=== PATIENT | female | born 1980 | race Caucasian/White ===

== ENCOUNTER → 2018-02-15 | Outpatient (CLI) | payer OTHER ==
[2018-02-15 16:53] LABS: Iron Saturation 27.54 (12.00-45.00)
[2018-02-15 17:06] LABS: Parathyroid Hormone Intact 34.7 pg/mL (14.0-72.0)
[2018-02-19 11:51] LABS: Dopamine 24 Hr Urine 245 ug/day (65-400); Epinephrine 24 Hr Urine <2 ug/day (0-20); Norepinephrine 24 Hr Urine 22 ug/day (15-80); Total Catecholamines Urine 22 ug/day (15-100); Urine Creatinine,24 Hr 1.8 gm/24h (0.8-1.8)
[2018-02-19 13:42] LABS: Metanephrines 24 Hour,Urine 86 ug/day (52-341); Normetanephrine 24 Hour,Urine 173 ug/day (88-444); Total Metanephrines 24 Hour,Ur 259 ug/day (140-785)
[2018-02-20 11:52] LABS: Metanephrine, Free <25; Normetanephrine, Free 40
[2018-02-20 11:53] LABS: Total, Free (MN + NMN) 40
== END | disposition home or self-care (01) ==
LOC: LABWHC1 09:08
PROVIDERS: ATTEND Internal Medicine
DX: E04.1 Nontoxic single thyroid nodule (principal); Q61.5 Medullary cystic kidney
CPT/HCPCS: 36415; 82384; 82728; 83540; 83550; 83835; 83970

== ENCOUNTER 2020-04-27 03:36 | Observation (INO) | payer OTHER ==
[2020-04-27] MEDS ORDERED: SODIUM CHLORIDE 0.9% 500 ML 500 ML IV STA (04:04)
[2020-04-27] MEDS ORDERED: LORazepam 2 MG/ML INJ IV STA (04:05)
--- NOTE | 2020-04-27 04:06 | ED ---
Chest Pain [facility] - General Chief Complaint: Chest Pain Stated Complaint: Chest pain Time Seen by Provider: 04/27/20 03:52 Source: patient Mode of arrival: wheelchair Limitations: no limitations - History of Present Illness MD Complaint: chest pain -: hour(s) Onset: during rest Pain Location: epigastric Pain Radiation: none Severity: moderate Quality: tightness Consistency: constant Improves With: nothing Worsens With: nothing Treatments Prior to Arrival: none - Related Data Home Medications Medication Instructions Recorded Confirmed No Known Home Medications 04/27/20 04/27/20 Allergies Allergy/AdvReac Type Severity Reaction Status Date / Time No Known Allergies Allergy Verified 04/27/20 06:37 Review of Systems ROS Statement: Those systems with pertinent positive or pertinent negative responses have been documented in the HPI. ROS Other: All systems not noted in ROS Statement are negative. Constitutional: Denies: fever, chills Respiratory: Denies: cough, dyspnea, wheezes, hemoptysis Cardiovascular: Reports: chest pain. Denies: palpitations, dyspnea on exertion, orthopnea, edema, syncope Gastrointestinal: Denies: abdominal pain, nausea, vomiting, diarrhea Genitourinary: Denies: dysuria Musculoskeletal: Denies: back pain Skin: Denies: rash Neurological: Denies: headache, weakness, numbness EKG Findings - EKG Results: EKG: interpreted by GRECIA, sinus rhythm, normal axis, normal QRS, normal ST/T EKG shows: tachycardia (Rate 108 bpm) Past Medical History Past Medical History: Hypertension History of Any Multi-Drug Resistant Organisms: None Reported Past Surgical History: No Surgical Hx Reported Past Psychological History: ADD/ADHD, Anxiety Smoking Status: Former smoker Past Alcohol Use History: Occasional Past Drug Use History: Marijuana General Exam Limitations: no limitations General appearance: alert, in no apparent distress Head exam: Present: atraumatic, normocephalic Eye exam: Present: normal appearance. Absent: scleral icterus, conjunctival injection Neck exam: Present: normal inspection Respiratory exam: Present: normal lung sounds bilaterally. Absent: respiratory distress, wheezes, rales, rhonchi, stridor, chest wall tenderness Cardiovascular Exam: Present: regular rate, normal rhythm, normal heart sounds. Absent: systolic murmur, diastolic murmur, rubs, gallop GI/Abdominal exam: Present: soft. Absent: distended, tenderness, guarding, rebound, rigid, mass Extremities exam: Present: normal inspection, normal capillary refill. Absent: pedal edema, calf tenderness Back exam: Present: normal inspection. Absent: CVA tenderness (R), CVA tenderness (L) Neurological exam: Present: alert Skin exam: Present: warm, dry, intact, normal color. Absent: rash Course Vital Signs 04/27/20 04/27/20 04/27/20 03:37 03:51 04:00 Temperature 98.7 F Pulse Rate 119 H 96 Respiratory 20 16 18 Rate Blood Pressure 161/110 153/100 O2 Sat by Pulse 98 100 98 Oximetry 04/27/20 04/27/20 04/27/20 04:10 04:20 04:30 Temperature Pulse Rate 92 85 91 Respiratory 18 16 18 Rate Blood Pressure 148/120 148/120 148/120 O2 Sat by Pulse 100 97 98 Oximetry 04/27/20 04/27/20 04/27/20 04:40 04:50 05:00 Temperature Pulse Rate 90 90 96 Respiratory 16 17 Rate Blood Pressure 147/96 147/96 131/95 O2 Sat by Pulse 98 99 96 Oximetry 04/27/20 04/27/20 04/27/20 06:00 06:30 07:00 Temperature Pulse Rate 84 95 71 Respiratory 18 16 16 Rate Blood Pressure 120/82 125/86 119/85 O2 Sat by Pulse 98 96 96 Oximetry 04/27/20 07:26 Temperature Pulse Rate 86 Respiratory 18 Rate Blood Pressure 106/79 O2 Sat by Pulse 98 Oximetry Chest Pain [facility] Patient's 40-year-old woman presenting to be evaluated for epigastric chest tightness, anxiety, and hypertension. The patient states that she has not been sleeping well, approximately 5 hours going back many 3-4 days. She states she did have some subtle symptoms intermittently over the past couple of nights, but then things became severe tonight and noticed her blood pressure was quite high. She notes pain is somewhat atypical and her initial workup is negative. Discussed following up as outpatient versus admission for serial cardiac enzymes and telemetry, and patient does continue to have symptoms, though they have improved, and would prefer to stay. Disposition Clinical Impression: Chest pain Disposition: ADMITTED IP TO THIS HOSP Condition: Good
[2020-04-27 04:19] LABS: Basophils % (A) 1 %; Eosinophils # (A) 0.1 k/uL (0-0.7); Eosinophils % (A) 1 %; HCT 44.8 % (34.0-46.0); HGB 15.5 gm/dL (11.4-16.0); Lymphocytes % (A) 27 %; MCH 30.9 pg (25.0-35.0); MCHC 34.5 g/dL (31.0-37.0); MCV 89.7 fL (80.0-100.0); Mean Platelet Volume 7.3; Monocytes # (A) 0.3 k/uL (0-1.0); Monocytes % (A) 4 %; Neutrophils % (A) 66 %; Platelet Count 283 k/uL (150-450); RDW 12.7 % (11.5-15.5); WBC 7.5 k/uL (3.8-10.6)
[2020-04-27 04:34] LABS: ALT 14 U/L (4-34); AST 21 U/L (14-36); African American GFR (CKD) >90 (>60 ml/min/1.73 sqM); Albumin 5.3 g/dL (3.5-5.0); Alkaline Phosphatase 58 U/L (38-126); Anion Gap 11 mmol/L; Blood Urea Nitrogen 10 mg/dL (7-17); Calcium 10.2 mg/dL (8.4-10.2); Carbon Dioxide 23 mmol/L (22-30); Chloride 104 mmol/L (98-107); Glucose 119 mg/dL (74-99); Non-African American GFR(CKD) >90 (>60 ml/min/1.73 sqM); Potassium 3.8 mmol/L (3.5-5.1); Sodium 138 mmol/L (137-145); Total Bilirubin 0.7 mg/dL (0.2-1.3); Total Protein 8.6 g/dL (6.3-8.2)
[2020-04-27 04:37] LABS: D-Dimer 0.38 mg/L FEU (<0.60); Prothrombin Time 10.2 sec (9.0-12.0)
--- NOTE | 2020-04-27 04:38 | XR ---
EXAM: XR Chest, 2 Views CLINICAL HISTORY: ITS.REASON XR Reason: Chest Pain TECHNIQUE: Frontal and lateral views of the chest. COMPARISON: No relevant prior studies available. FINDINGS: Lungs: No consolidation or mass. Pleural space: No effusion. Heart: No cardiomegaly. Bones/joints: No acute findings. IMPRESSION: No acute cardiopulmonary process.
[2020-04-27] MEDS ORDERED: NITROGLYCERIN SL TABS 0.4 MG TAB SUBLINGUAL PRN (05:41)
[2020-04-27 07:27] VITALS: RESP 18
[2020-04-27] MEDS ORDERED: ACETAMINOPHEN TAB 325 MG TAB PO PRN (08:59)
[2020-04-27] MEDS ORDERED: FAMOTIDINE 20 MG/2 ML VIAL IV SCH (09:00)
[2020-04-27] MEDS ORDERED: METOPROLOL TARTRATE 25 MG TAB PO SCH (09:00)
[2020-04-27] MEDS ORDERED: HEPARIN SODIUM,PORCINE 5,000 UNIT/ML 1 ML VIAL SQ SCH (09:00)
--- NOTE | 2020-04-27 09:13 | P.HPIM ---
History of Present Illness This is a pleasant 40 years old female with past medical history of hypertension. Also history of anxiety. She is a patient of Dr. Quinones. She Presents because of chest pain , of unknown for 5 days, mainly in the epigastric or lower central chest, at points radius to the left shoulder and upper back but not currently. Patient could not rate the pain 1-10 stating that his only tightness and it is associated with headache about 67, her chest pain or headache are improved with sleep and she thinks they are related to her anxiety as she has 4 kids going to school and her grandmother has recently. She denies weakness numbness, no surgeries range, no diplopia or blurred vision although she says sometimes when she watches the TV she got blurred vision but not currently. She denies depression or suicidal ideation. She denies dyspnea, no nausea vomiting, no dizziness she denies smoking, occasional alcohol, no illicit drugs. As per my previous test she said her had surgery 3 years ago and she does not want to do the test. Vitas looks stable. Labs are unremarkable including CBC, INR, d-dimer, BMP, liver enzymes. Chest x-ray: No acute process. EKG showed sinus tachycardia at [address]-T changes. Review of Systems CONSTITUTIONAL: No fever, no malaise, no fatigue. HEENT: No recent visual problems or hearing problems. Denied any sore throat. CARDIOVASCULAR: No orthopnea, PND, no palpitations, no syncope. PULMONARY: No shortness of breath, no cough, no hemoptysis. GASTROINTESTINAL: No diarrhea, no nausea, no vomiting, no abdominal pain. Nor moactive bowel sounds. NEUROLOGICAL: No headaches, no weakness, no numbness. HEMATOLOGICAL: Denies any bleeding or petechiae. GENITOURINARY: Denies any burning micturition, frequency, or urgency. MUSCULOSKELETAL/RHEUMATOLOGICAL: Denies any joint pain, swelling, or any muscle pain. ENDOCRINE: Denies any polyuria or polydipsia. Past Medical History Past Medical History: Hypertension History of Any Multi-Drug Resistant Organisms: None Reported Past Surgical History: No Surgical Hx Reported Past Psychological History: ADD/ADHD, Anxiety Smoking Status: Former smoker Past Alcohol Use History: Occasional Past Drug Use History: Marijuana Medications and Allergies Home Medications Medication Instructions Recorded Confirmed Type No Known Home Medications 04/27/20 04/27/20 History Allergies Allergy/AdvReac Type Severity Reaction Status Date / Time No Known Allergies Allergy Verified 04/27/20 06:37 Physical Exam Vitals: Vital Signs Temp Pulse Resp BP Pulse Ox 04/27/20 07:00 71 16 119/85 96 04/27/20 06:30 95 16 125/86 96 04/27/20 06:00 84 18 120/82 98 04/27/20 05:00 96 17 131/95 96 04/27/20 04:50 90 147/96 99 04/27/20 04:40 90 16 147/96 98 04/27/20 04:30 91 18 148/120 98 04/27/20 04:20 85 16 148/120 97 04/27/20 04:10 92 18 148/120 100 04/27/20 04:00 96 18 153/100 98 04/27/20 03:51 16 100 04/27/20 03:37 98.7 F 119 H 20 161/110 98 Intake and Output 04/26/20 04/27/20 04/27/20 22:59 06:59 14:59 Other: Weight 58.967 kg GENERAL: The patient is alert and oriented x3, not in any acute distress. Well developed, well nourished. HEENT: Pupils are round and equally reacting to light. EOMI. No scleral icterus. No conjunctival pallor. Normocephalic, atraumatic. No pharyngeal erythema. No thyromegaly. CARDIOVASCULAR: S1 and S2 present. No murmurs, rubs, or gallops. PULMONARY: Chest is clear to auscultation, no wheezing or crackles. ABDOMEN: Soft, nontender, nondistended, normoactive bowel sounds. No palpable organomegaly. MUSCULOSKELETAL: No joint swelling or deformity. EXTREMITIES: No cyanosis, clubbing, or pedal edema. NEUROLOGICAL: Gross neurological examination did not reveal any focal deficits. SKIN: No rashes. No petechiae Results CBC & Chem 7: 04/27/20 04:12 04/27/20 04:12 Labs: Abnormal Lab Results - Last 24 Hours (Table) 04/27/20 Range/Units 04:12 Glucose 119 H (74-99) mg/dL Total Protein 8.6 H (6.3-8.2) g/dL Albumin 5.3 H (3.5-5.0) g/dL Assessment and Plan Assessment: Chest pain, rule out cardiac causes. D-dimer is negative at 0.38 Headache, most likely tension headache Anxiety Hypertension Plan: This is a pleasant 40 years old female who presents with chest pain. Serial troponin. Cardiology consult. Check echocardiogram . Also we will ask for psych consult and start the patient on BuSpar Labs and medication were reviewed.. Continue same treatment. Continue with symptomatic treatment. Resume home medication. Monitor lytes and vitals. DVT and GI prophylaxis. Further recommendations depends on the clinical course of the patient DVT prophylaxis: Subcutaneous heparin GI Prophylaxis: Pepcid Prognosis is guarded
[2020-04-27] MEDS ORDERED: busPIRone HCl 5 MG TAB PO SCH (09:15)
--- NOTE | 2020-04-27 11:13 | P.CRDCN ---
History of Present Illness History of present illness: HISTORY OF PRESENTING ILLNESS This is a pleasant 40-year-old female past medical history significant for prior hypertension however has been off of any medications recently, prior palpitatio ns and anxiety. 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 Patient states that for the last 4-5 days she has been experiencing what she describes as a chest pain however appears more epigastric in nature. She says it is sharp and stabbing sensation and comes and goes. She initially thought this may be related to her anxiety however it has been lasting over last 4-5 days which has not happened previously with her prior anxiety attacks. She admits it does come and go and is normally better when she is sleeping however when she gets up it is worse. She denies any association however with exertion. She admits to previously been on some sort of medications for high blood pressure however stopped taking these and does not check her blood pressure at home. Her initial blood pressure was elevated at 161/118. She does admit to continued epigastric discomfort. No specific association with food DIAGNOSTICS EKG reveals sinus tachycardia at 108 bpm, normal axis, no significant ST or T wave abnormalities. Chest xray no acute pulmonary process. Laboratory reviewed, hemoglobin 15.5, d-dimer 0.38, creatinine 0.69, troponin negative 2. Current cardiac medications include aspirin 325 mg daily, metoprolol 12.5 mg twice a day. REVIEW OF SYSTEMS At the time of my exam: CONSTITUTIONAL: Denies fever or chills. CARDIOVASCULAR:+chest pain, no shortness of breath, orthopnea, PND or pa lpitations. RESPIRATORY: Denies cough. GASTROINTESTINAL: +abdominal pain, no diarrhea, constipation, nausea or vomiting. MUSCULOSKELETAL: Denies myalgias. NEUROLOGIC: Denies numbness, tingling or weakness. ENDOCRINE: Denies fatigue, weight change, polydipsia or polyurina. GENITOURINARY: Denies burning, hematuria or urgency with micturation. HEMATOLOGIC: Denies history of anemia or bleeding. PHYSICAL EXAMINATION Blood pressure 106/79 heart rate 86 afebrile and maintaining oxygen saturation on room air. CONSTITUTIONAL: No apparent distress. HEENT: Head is normocephalic. Pupils are equal, round. Sclerae anicteric. Mucous membranes of the mouth are moist. No JVD. No carotid bruit. CHEST EXAMINATION: Lungs are clear to auscultation. No chest wall tenderness is noted on palpation or with deep breathing. HEART EXAMINATION: Regular rate and rhythm. S1, S2 heard. No murmurs, gallops or rub. ABDOMEN: Soft. Positive bowel sounds. + More epigastric and chest pain EXTREMITIES: 2+ peripheral pulses, no lower extremity edema and no calf tenderness. NEUROLOGIC EXAMINATION: Patient is awake, alert and oriented x3. ASSESSMENT 1. Atypical chest pain. Appears more epigastric in nature. Troponin negative 2. 2. Elevated blood pressure, may be related to anxiety and stress. Patient was placed on metoprolol. She admits she was previously on medications for high blood pressure. 3. History of anxiety 4. History of palpitations PLAN Chest pain appears atypical and may be related more to epigastric pain with possible component of GERD. Patient was placed on antacids. Acute coronary syndrome has been ruled out. We will check a exercise stress echo. Patient will likely have continued chest pain during the stress test however if no reversible ischemia, patient may be discharged from a cardiology standpoint. Past Medical History Past Medical History: Hypertension History of Any Multi-Drug Resistant Organisms: None Reported Past Surgical History: No Surgical Hx Reported Past Psychological History: ADD/ADHD, Anxiety Smoking Status: Former smoker Past Alcohol Use History: Occasional Past Drug Use History: Marijuana Medications and Allergies Home Medications Medication Instructions Recorded Confirmed Type No Known Home Medications 04/27/20 04/27/20 History Allergies Allergy/AdvReac Type Severity Reaction Status Date / Time No Known Allergies Allergy Verified 04/27/20 06:37 Physical Exam Vitals: Vital Signs Temp Pulse Resp BP Pulse Ox 04/27/20 07:26 86 18 106/79 98 04/27/20 07:00 71 16 119/85 96 04/27/20 06:30 95 16 125/86 96 04/27/20 06:00 84 18 120/82 98 04/27/20 05:00 96 17 131/95 96 04/27/20 04:50 90 147/96 99 04/27/20 04:40 90 16 147/96 98 04/27/20 04:30 91 18 148/120 98 04/27/20 04:20 85 16 148/120 97 04/27/20 04:10 92 18 148/120 100 04/27/20 04:00 96 18 153/100 98 04/27/20 03:51 16 100 04/27/20 03:37 98.7 F 119 H 20 161/110 98 Intake and Output 04/26/20 04/27/20 04/27/20 22:59 06:59 14:59 Other: Weight 58.967 kg 58.97 kg Results 04/27/20 04:12 04/27/20 04:12 Cardiac Enzymes 04/27/20 04/27/20 04/27/20 Range/Units 04:12 04:12 07:04 AST 21 (14-36) U/L Troponin I <0.012 <0.012 (0.000-0.034) ng/mL Coagulation 04/27/20 Range/Units 04:12 PT 10.2 (9.0-12.0) sec APTT 25.0 (22.0-30.0) sec CBC 04/27/20 Range/Units 04:12 WBC 7.5 (3.8-10.6) k/uL RBC 5.00 (3.80-5.40) m/uL Hgb 15.5 (11.4-16.0) gm/dL Hct 44.8 (34.0-46.0) % Plt Count 283 (150-450) k/uL Comprehensive Metabolic Panel 04/27/20 Range/Units 04:12 Sodium 138 (137-145) mmol/L Potassium 3.8 (3.5-5.1) mmol/L Chloride 104 (98-107) mmol/L Carbon Dioxide 23 (22-30) mmol/L BUN 10 (7-17) mg/dL Creatinine 0.69 (0.52-1.04) mg/dL Glucose 119 H (74-99) mg/dL Calcium 10.2 (8.4-10.2) mg/dL AST 21 (14-36) U/L ALT 14 (4-34) U/L Alkaline Phosphatase 58 (38-126) U/L Total Protein 8.6 H (6.3-8.2) g/dL Albumin 5.3 H (3.5-5.0) g/dL Current Medications Generic Name Dose Route Start Last Admin Trade Name Freq PRN Reason Stop Dose Admin Acetaminophen 650 mg 04/27/20 08:59 04/27/20 09:33 Acetaminophen Tab 325 Mg Tab PO 650 mg Q6HR PRN Administration Fever and/ or Pain Aspirin 325 mg 04/28/20 09:00 Aspirin 325 Mg Tab PO DAILY [facility] Buspirone HCl 5 mg 04/27/20 09:15 Buspirone Hcl 5 Mg Tab PO BID [facility] Famotidine 20 mg 04/27/20 09:00 Famotidine 20 Mg/2 Ml Vial IV Q12HR [facility] Heparin Sodium (Porcine) 5,000 unit 04/27/20 09:00 Heparin Sodium,Porcine 5,000 Unit/Ml 1 Ml Vial SQ Q12HR [facility] Metoprolol Tartrate 12.5 mg 04/27/20 09:00 Metoprolol Tartrate 25 Mg Tab PO BID [facility] Nitroglycerin 0.4 mg 04/27/20 05:41 Nitroglycerin Sl Tabs 0.4 Mg Tab SUBLINGUAL Q5M PRN Chest Pain Intake and Output 04/26/20 04/27/20 04/27/20 22:59 06:59 14:59 Other: Weight 58.967 kg 58.97 kg Patient Weight 04/28/20 06:59 Weight 58.97 kg 04/27/20 04:12 04/27/20 04:12
--- NOTE | 2020-04-27 11:16 | ECHOF ---
Referral Reason:Rule out heart disease MEASUREMENTS -------- HEIGHT: 167.6 cm WEIGHT: 59.0 kg BP: 119/85 IVSd: 1.1 cm (0.6 - 1.1) LVIDd: 2.5 cm (3.9 - 5.3) LVPWd: 1.5 cm (0.6 - 1.1) IVSs: 1.4 cm LVIDs: 1.7 cm LVPWs: 1.6 cm LAESV Index (A-L): 19.21 ml/m Ao Diam: 2.9 cm (2.0 - 3.7) AV Cusp: 1.7 cm (1.5 - 2.6) MV E Jorje: 0.79 m/s MV DecT: 186 ms MV A Jorje: 0.81 m/s MV E/A Ratio: 0.97 RAP: 5.00 mmHg RVSP: 24.40 mmHg FINDINGS -------- Sinus rhythm. This was a technically adequate study. The left ventricular size is normal. There is borderline concentric left ventricular hypertrophy. Overall left ventricular systolic function is normal with, an EF between 55 - 60 %. The diastolic filling pattern is normal for the age of the patient 8.73. The RV was not well visualized. Normal LA size by volume 22+/-6 ml/m2. The right atrial size is normal. Interatrial and interventricular septum intact. The aortic valve was not well visualized. There is no evidence of aortic regurgitation. There is no evidence of aortic stenosis. No mitral regurgitation. Mild tricuspid regurgitation present. There is no evidence of pulmonary hypertension. The right v entricular systolic pressure, as measured by Doppler, is 24.40mmHg. There is no pulmonic regurgitation present. The aortic root size is normal. Normal inferior vena cava with normal inspiratory collapse consistent with estimated right atrial pre ssure of 5 mmHg. There is no pericardial effusion. CONCLUSIONS -------- 1. The left ventricular size is normal. 2. There is borderline concentric left ventricular hypertrophy. 3. Overall left ventricular systolic function is normal with, an EF between 55 - 60 %. 4. The diastolic filling pattern is normal for the age of the patient 8.73 5. Mild tricuspid regurgitation present. [facility] [employer] [facility] [facility]: [place] [facility]
--- NOTE | 2020-04-27 11:18 | P.STRESS ---
- Stress Test Note Stress Test Results/Findings: Exam Performed: stress echo exercise Exam Date: 04/27/20 Reason for Exam: CP Height: 5 ft 6 in Weight: 58.97 kg Protocol: STRESS ECHO Stage: 3 Duration of Exercise: 9:00 Resting Heart Rate: 108 Resting Blood Pressure: 143/78 Maximum Achieved Heart Rate: 173 Maximum Achieved Blood Pressure: 177/94 85% PMHR: 151 100% PMHR: 178 METS: 10.3 Technologist Comment: Stress Test Results/Findings: Patient underwent exercise stress echo with a Colt protocol treadmill stress test. Patient exercised into Stage 3 for a total of 9 minutes reaching a total of 10.3 METS. Patient's maximum heart rate was 173 which represented 97 % age- predicted maximum heart rate. Stress EKG portion: At baseline patient's EKG showed normal sinus rhythm, no significant ST or T- wave abnormalities. At peak exercise, EKG showed nonspecific 0.[address] depressions in the inferior lateral leads. Stress echo portion: 2-D echocardiogram was performed in the parasternal long, personal short, apical 2 and apical four-chamber views at rest, peak exercise and in recovery. At baseline, echocardiogram showed left ventricular ejection fraction 60 % without wall motion abnormalities. With peak exercise, echocardiogram shows improvement in left ventricular ejection fraction, increase contractility, decrease in left ventricular dimension without wall motion abnormalities consistent with a normal response to exercise. Conclusions: 1. Normal EKG and echo response to exercise without evidence of inducible ischemia. 2. Good exercise capacity.
[2020-04-27] MEDS ORDERED: ALPRAZolam 0.25 MG TAB PO STA (12:11)
[2020-04-27 13:00] VITALS: BP 133/90; PULSE 77; TEMP 98
[2020-04-27] MEDS ORDERED: hydrOXYzine pamoate 25 MG CAP PO PRN (13:17)
--- NOTE | 2020-04-27 13:26 | P.CN ---
Psychiatric Consult - . Consult date: 04/27/20 Consult:: 04/27/20 13:18 IDENTIFYING DATA: This patient is a 40-year-old female who is currently lives with her and 4 kids and a house and works at a school in the kitchen. REASON FOR REFERRAL: Psychiatry was consulted for anxiety with headache. HISTORY OF PRESENT ILLNESS: The patient presented to the hospital yesterday with complaints of anxiety, chest pain and hypertension. Patient apparently was having poor sleep and was having epigastric pain and was admitted for cardiac workup. Patient's troponins were negative and patient underwent a stress test which did not reveal any significant findings. Patient was seen at the bedside today by marketing underwriter and claims that she was feeling "tightness in my chest" for the past several days. She states that she was dealing with the passing of her grandmother couple of days ago and states that she was on COPD and oxygen and was having a gradual decline in her health. She states that she also has been dealing with the stress of her children at home all being home schooled and also not being at work. She claims that she has been dealing with anxiety for several years and has tried several medications in the past and states that "I didn't have it for 2 years but it came back a few days ago". She states that she is feeling as though she was can have a heart attack last night so she came into the hospital. She admits to poor sleep approximately 3-5 hours a night and denies any depression today. At this time patient denies any suicidal or homical ideations, intent or plan. Patient denies any auditory, visual hallucinations and denies any paranoia or delusions. Patients admits to using alcohol occasionally and marijuana occasionally and denies any other recreational drug use. PAST PSYCHIATRIC HISTORY: Patient has a a history of ADHD, anxiety and depres shonna in the past. She states that she is currently not on any psychiatric medications however in the past has tried Lexapro, Prozac and Celexa and has not found him helpful. Patient denies any previous psychiatric hospitalizations. Patient denies any psychiatric outpatient follow-up. Patient denies any history of suicide attempts in the past. PAST MEDICAL HISTORY: Hypertension. ALLERGIES: as per EMR. CHEMICAL DEPENDENCY HISTORY: as per HPI. FAMILY PSYCHIATRIC/SUBSTANCE USE HISTORY: denies SOCIAL HISTORY: Patient was born and raised in [facility] and states that she has completed high school and denies any history of care home or chcf. She currently lives with her and 4 kids and a house and works at a school in the kitchen. MENTAL STATUS EXAM: General Appearance: Patient appears to be stated age is alert, pleasant, and cooperative. Patient appears to have fair hygiene and grooming wearing hospital gown with fair eye contact. Behavior: Patient is calmly lying in bed without any agitated behavior. Speech: Patient's speech is fluent and nonpressured. Mood/Affect: Patient reports their mood is "anxious", affect is congruent Suicidality/Homicidality: Patient denies having any suicidal or homicidal ideation intent or plan. Perceptions: Patient denies any visual hallucinations and denies any auditory hallucinations Though content/process: There is no evidence of any delusional thought content and thought process is linear and goal-directed. Memory and concentration: AOX3, grossly intact for the purposes of this session. Can spell "WORLD" backwards Judgment and insight: Fair IMPRESSIONS: Generalized anxiety disorder Cannabis use disorder, mild PLAN: -At this time patient DOES NOT meet criteria for inpatient psychiatric admission. -Would recommend the following medication changes/additions: Discussed with patient in great detail about the different medication options, side effects and benefits and patient is refusing to be started on any SSRI/SNRI at this time. Patient refused to be on BuSpar as she states that it has not helped her in the past and does not want to take it. She claims that she has had some benefit from Xanax and Klonopin in the past however I would not make a recommendation to start it at this time due to abuse potential and tolerance. Would recommend that patient start Vistaril 25 mg twice a day when necessary for anxiety. -garnett room worker to provide patient with outpatient mental health/psychiatry resources for appropriate follow up upon discharge. Patient would benefit from individual therapy. -Gerontological Nurse Practitioner spoke with patient about substance abuse and the harmful effects on medical and mental health, patient verbally understood and agreed. -Communicated plan to patient's nurse -Psychiatry will sign off at this time -Please contact with any questions.
[2020-04-27] MEDS ORDERED: FAMOTIDINE 20 MG TAB PO SCH (21:00)
[2020-04-28] MEDS ORDERED: ASPIRIN 325 MG TAB PO SCH (09:00)
== END 2020-04-27 13:52 | disposition home or self-care (01) ==
LOC: EC 03:36 → 1SOBS 05:41
PROVIDERS: ADMIT Hospitalist; ATTEND Hospitalist
DX: R07.89 Other chest pain (principal); R10.13 Epigastric pain; R51.9 Headache, unspecified; R00.0 Tachycardia, unspecified; F41.1 Generalized anxiety disorder; I10 Essential (primary) hypertension; F90.9 Attention-deficit hyperactivity disorder, unspecified type; F32.9 Major depressive disorder, single episode, unspecified; F12.90 Cannabis use, unspecified, uncomplicated; Z63.79 Other stressful life events affecting family and household; Z72.820 Sleep deprivation; Z87.891 Personal history of nicotine dependence; Z91.128 Patient's intentional underdosing of medication regimen for other reason
CPT/HCPCS: 96361; 96374; 99285; 36415; 93005; 93306; 93351; 85379; 80053; 83735; 84484; 85025; 85610; 85730; 71046; G0378; J2060